=== PATIENT | male | born 1955 | race Caucasian/White ===

== ENCOUNTER 2016-04-27 22:12 | Emergency (ER) | payer OTHER ==
--- NOTE | 2016-04-27 23:37 | ED ORDER SUMMARY ---
..... Patient: YENNI GALEANO OrderSheet [facility] VisitID: [id number] [place] [address] 60y, M Registration Date/Time: 04/27/2016 ORDER SHEET Weight: 94.3 kg (stated) Allergies: No Known Drug Allergy GENERAL ORDERS: MEDICATION ORDERS: Fluorescein Eye Strips 1 strips (NOW) (22:54 04/27/2016 Elzbieta ROSA) (Ack 22:56 Pamella) (23:59 John R.N.) Proparacaine Eye Drops (Solution 0.5 %) 2 drops (affected eye) (22:54 04/27/2016 Elzbieta ROSA) (Ack 22:56 Pamella) (23:59 John R.N.) IV FLUIDS: ORDER SHEET NOTES: [Electronically signed by Contreras Anaya R.N. (23:59 04/27/2016)] [Electronically signed by Gianfranco William MD (22:30 04/29/2016)] [Electronically locked/signed by Contreras Anaya R.N. (23:59 04/27/2016)]
--- NOTE | 2016-04-27 23:37 | ED CLINICAL REPORT ---
Clinical Report - Physicians/Mid Levels [facility] [address] [place] [address] 04/27/2016 22:25 Patient: YENNI GALEANO Time Seen: 22:44 Apr 27 2016. Arrived- By private vehicle. Historian- patient. CPT: ER phys charges level 3 plus (#[id number]). Cornea FB removal w/o slit boyce (#[id number]). HISTORY OF PRESENT ILLNESS Chief Complaint: EYE PAIN and FOREIGN BODY. 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 The patient sustained injury. He has metallic foreign material in the right eye. Eye pain and discomfort. No eye discharge or eye matting. REVIEW OF SYSTEMS No fever, sore throat or cough. All systems otherwise negative, except as recorded above. PAST HISTORY See nurses notes. No history of prior eye injury. He does not wear contact lenses. Tetanus immunization status is up-to-date. Medications: Glipizide Oral. Allergies: No Known Drug Allergy. SOCIAL HISTORY Light tobacco smoker (cigarette)- less than 1/2 a pack per day. No alcohol use or drug use. PHYSICAL EXAM Vital Signs: 04/27/2016 22:34 BP: 159/82. HR: 84. RR: 20. O2 saturation: 96%. Temp: 98.8 F. Pain level now: 7/10. Appearance: Alert. HEENT: Nose normal. Pharynx normal. Head appears normal to external inspection. Rt Eye: A single metallic corneal foreign body is present centrally and laterally. No corneal abrasion or fluorescein dye uptake. Eyes: Visual acuity normal bilaterally. Right eyelid everted for examination. Right cornea examined with fluorescein stain. Eyelids appear normal to inspection. Conjunctivae and sclerae appear normal to inspection. Pupils equal, round and reactive to light. Accommodation normal. Funduscopic exam normal. EOMs intact. Periorbital areas appear normal to inspection. Anterior chambers clear. Anterior chambers of normal depth. Lt Eye: Left eye exam normal. Skin: No rash. Neuro: Oriented X 3. PROGRESS AND PROCEDURES Removal of Eye Foreign Body: After topical anesthesia with Proparacaine, a single foreign body was successfully removed from the right cornea using magnification lenses, a moistened sterile cotton swab and a sterile syringe with needle and irrigation, fluorescein and a Wood's lamp. There were no complications encountered. Aftercare included antibiotic ointment and an eye patch on the right eye. The patient was cooperative. A single rust ring removed completely. (sary brush used to remove rust ring.). Patient/family counseled. Disposition: Discharged. Condition: stable. CLINICAL IMPRESSION Removed corneal foreign body right eye with rust ring. INSTRUCTIONS Do not work for two days. (Eye patch as needed.). Warnings: Further evaluation is necessary. GENERAL WARNINGS: Return or contact your physician immediately if your condition worsens or changes unexpectedly, if not improving as expected, or if other problems arise. Your Current Medications: CONTINUE TAKING THE FOLLOWING MEDICATIONS: Glipizide Oral. Prescription Medications: Hydrocodone/APAP 5mg/325mg: take 1 to 2 orally every 6 hours as needed for pain. Dispense fifteen (15). No refills. Garamycin ophthalmic solution 0.3% : Instill 1 drop into affected eye every 4 hours while awake for 1 week. Dispense five (5) mL. No refills. Substitution is permissible. Follow-up: Follow up with your doctor in two days if not better. Understanding of the discharge instructions verbalized by patient and family. (Electronically signed by Gianfranco William MD 04/29/2016 22:30)
--- NOTE | 2016-04-27 23:37 | ED NURSING NOTES ---
Clinical Report - Nurses [facility] [place] [address] 04/27/2016 22:25 Patient: YENNI GALEANO TRIAGE Triage time 22:34 Apr 27 2016. Acuity: LEVEL 3. Chief Complaint: REDNESS, PAIN and FOREIGN BODY TO RIGHT EYE. SEPSIS SCREEN: Sepsis Screen: negative. Negative (no infection suspected/documented). BATOOL COMA SCORE: [place] Coma Scale: 15- eyes open spontaneously (4); best verbal response- oriented x 4 (5); best motor response- obeys commands (6). --22:37 Lucia Rossi 22:34 04/27/16. BP: 159/82. HR: 84. RR: 20. O2 saturation: 96% on room air. Temp: 98.8 F (oral). Pain level now: 10/07. --22:37 Lucia Rossi. Weight: 94.3 kg stated. Height/Length: 69 inches Per Patient. BMI: 30.7. --22:35 Lucia Rossi. Medications Glipizide Oral. --22:36 Lucia Rossi. Allergies No Known Drug Allergy. --22:36 Lucia Rossi. History Arrived by private vehicle. Historian: patient. Accompanied by family. Onset. (). He may have sustained an injury. 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 ( Patient states he was grinding metal at work on when he felt that something entered his right eye. He states it has become increasingly irritated and painful.). PAST MEDICAL HX: Immunizations: up-to-date. SOCIAL HX: Light tobacco smoker (cigarette)- less than 1/2 a pack per day. No alcohol use or drug use. No infectious disease exposure. ABUSE ASSESSMENT: No report of abuse. FALL RISK ASSESSMENT: Fall risk assessment completed. No fall risk identified. NUTRITIONAL RISK ASSESSMENT: The nutritional risk assessment revealed no deficiencies. FUNCTIONAL ASSESSMENT: Functional assessment: no impairments noted. LEARNING NEEDS ASSESSMENT: The learning needs assessment revealed no barriers. SKIN INTEGRITY ASSESSMENT: Skin integrity risk assessment completed. No skin integrity risk identified. --22:37 Enid Lucia. PROBLEMS: Diabetes Mellitus. --22:37 Enid Lucia. ADDITIONAL SURGERIES: Back Surgery. --22:37 Enid Lucia. Interventions ID band on patient. To treatment room. --22:37 Enid Lucia. PHYSICAL ASSESSMENT GENERAL / NEURO / PSYCH: Alert. Appears in no acute distress. HEENT: No facial asymmetry noted. Conjunctival findings present: redness of the right conjunctiva. RESPIRATORY: Respirations not labored. SKIN: Skin is warm and dry. --22:37 Lucia Rossi HEENT: Visual acuity with corrective lenses: left eye 20/25; right eye 20/25; both eyes 20/25. --22:40 Enid Lucia. NURSING PROGRESS NOTES Reassurance given to the patient. Two patient identifiers checked. Call light placed in reach. Side rails up x 1. Bed placed in lowest position. Brakes of bed on. Patient ready for evaluation- chart flagged. --22:37 EnidBeLucia 23:59 04/27/2016 Proparacaine Eye Drops Opthalmic solution 1 drop given. Given in the right eye. Allergies verified and confirmed 5 rights. (Administered by Dr. William). --23:59 Contreras Anaya R.N. 23:59 04/27/2016 FLUORESCEIN Opth soln Opthalmic solution 1 Strip given. Given in the right eye. Allergies verified and confirmed 5 rights. (Administered by Dr. William). --23:59 Contreras Anaya, R.N. DISPOSITION / DISCHARGE Condition at departure: stable. The goals identified in the patient's plan of care were met. No learning barriers present. Discharge instructions provided and reviewed with the patient. Reviewed medication(s) side effects, precautions, dosing and course information. Prescription(s) given to the patient (Yenni verbalizes importance of finishing all prescribed antibiotics. He verbalizes importance of not driving and/or operating heavy machinery while under influence of narcotics. He verbalizes safe, proper use of all prescribed pain meds for optimal pain management at home.). Patient verbalized understanding. Written instructions provided in Tongan. ( Yenni verbalizes understanding of all d/c instructions including need to f/u with PCP. He has no questions and voices no concerns at this time.). BATOOL COMA SCORE: [place] Coma Scale: 15- eyes open spontaneously (4); best verbal response- oriented x 4 (5); best motor response- obeys commands (6). --23:50 Contreras Anaya R.N. 23:48 04/27/16. BP: 140/68 (regular adult cuff) taken on the left arm, via an automated monitor, while sitting. HR: 67 (normal rate). RR: 14 (regular, unlabored and normal). O2 saturation: 94% on room air. Temp: 98.4 F (oral). Pain level now: 06/07. --23:50 Contreras Anaya R.N. Departure time: 23:58. Work note given (2 days off). The patient was discharged by the physician. He was discharged home and accompanied by family. He left the Emergency Department ambulatory and via private vehicle. Family member driving. --23:58 Contreras Anaya R.N. Locked/Released at 04/27/2016 23:59 by Contreras Anaya R.N.
--- NOTE | 2016-04-27 23:37 | ED ORDER SUMMARY ---
..... Patient: YENNI GALEANO OrderSheet [facility] VisitID: [id number] [place] [address] 60y, M Registration Date/Time: 04/27/2016 ORDER SHEET Weight: 94.3 kg (stated) Allergies: No Known Drug Allergy GENERAL ORDERS: MEDICATION ORDERS: Fluorescein Eye Strips 1 strips (NOW) (22:54 04/27/2016 Elzbieta ROSA) (Ack 22:56 Pamella) (23:59 John R.N.) Proparacaine Eye Drops (Solution 0.5 %) 2 drops (affected eye) (22:54 04/27/2016 Elzbieta ROSA) (Ack 22:56 Pamella) (23:59 John R.N.) IV FLUIDS: ORDER SHEET NOTES: [Electronically signed by Contreras Anaya R.N. (23:59 04/27/2016)] [Electronically signed by Gianfranco William MD (22:30 04/29/2016)] [Electronically locked/signed by Contreras Anaya R.N. (23:59 04/27/2016)]
--- NOTE | 2016-04-27 23:37 | ED CLINICAL REPORT ---
Clinical Report - Physicians/Mid Levels [facility] [address] [place] [address] 04/27/2016 22:25 Patient: YENNI GALEANO Time Seen: 22:44 Apr 27 2016. Arrived- By private vehicle. Historian- patient. CPT: ER phys charges level 3 plus (#[id number]). Cornea FB removal w/o slit boyce (#[id number]). HISTORY OF PRESENT ILLNESS Chief Complaint: EYE PAIN and FOREIGN BODY. 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 The patient sustained injury. He has metallic foreign material in the right eye. Eye pain and discomfort. No eye discharge or eye matting. REVIEW OF SYSTEMS No fever, sore throat or cough. All systems otherwise negative, except as recorded above. PAST HISTORY See nurses notes. No history of prior eye injury. He does not wear contact lenses. Tetanus immunization status is up-to-date. Medications: Glipizide Oral. Allergies: No Known Drug Allergy. SOCIAL HISTORY Light tobacco smoker (cigarette)- less than 1/2 a pack per day. No alcohol use or drug use. PHYSICAL EXAM Vital Signs: 04/27/2016 22:34 BP: 159/82. HR: 84. RR: 20. O2 saturation: 96%. Temp: 98.8 F. Pain level now: 7/10. Appearance: Alert. HEENT: Nose normal. Pharynx normal. Head appears normal to external inspection. Rt Eye: A single metallic corneal foreign body is present centrally and laterally. No corneal abrasion or fluorescein dye uptake. Eyes: Visual acuity normal bilaterally. Right eyelid everted for examination. Right cornea examined with fluorescein stain. Eyelids appear normal to inspection. Conjunctivae and sclerae appear normal to inspection. Pupils equal, round and reactive to light. Accommodation normal. Funduscopic exam normal. EOMs intact. Periorbital areas appear normal to inspection. Anterior chambers clear. Anterior chambers of normal depth. Lt Eye: Left eye exam normal. Skin: No rash. Neuro: Oriented X 3. PROGRESS AND PROCEDURES Removal of Eye Foreign Body: After topical anesthesia with Proparacaine, a single foreign body was successfully removed from the right cornea using magnification lenses, a moistened sterile cotton swab and a sterile syringe with needle and irrigation, fluorescein and a Wood's lamp. There were no complications encountered. Aftercare included antibiotic ointment and an eye patch on the right eye. The patient was cooperative. A single rust ring removed completely. (sary brush used to remove rust ring.). Patient/family counseled. Disposition: Discharged. Condition: stable. CLINICAL IMPRESSION Removed corneal foreign body right eye with rust ring. INSTRUCTIONS Do not work for two days. (Eye patch as needed.). Warnings: Further evaluation is necessary. GENERAL WARNINGS: Return or contact your physician immediately if your condition worsens or changes unexpectedly, if not improving as expected, or if other problems arise. Your Current Medications: CONTINUE TAKING THE FOLLOWING MEDICATIONS: Glipizide Oral. Prescription Medications: Hydrocodone/APAP 5mg/325mg: take 1 to 2 orally every 6 hours as needed for pain. Dispense fifteen (15). No refills. Garamycin ophthalmic solution 0.3% : Instill 1 drop into affected eye every 4 hours while awake for 1 week. Dispense five (5) mL. No refills. Substitution is permissible. Follow-up: Follow up with your doctor in two days if not better. Understanding of the discharge instructions verbalized by patient and family. (Electronically signed by Gianfranco William MD 04/29/2016 22:30)
--- NOTE | 2016-04-29 22:31 | ED DISCHARGE INSTRUCTIONS ---
Patient: YENNI GALEANO General Instructions [facility] VisitID: [id number] [place] [address] 60y, M Registration Date/Time: 04/27/2016 Removed corneal foreign body right eye with rust ring. INSTRUCTIONS Do not work for two days. (Eye patch as needed.). Warnings: Further evaluation is necessary. GENERAL WARNINGS: Return or contact your physician immediately if your condition worsens or changes unexpectedly, if not improving as expected, or if other problems arise. Your Current Medications: CONTINUE TAKING THE FOLLOWING MEDICATIONS: Glipizide Oral. Prescription Medications: Hydrocodone/APAP 5mg/325mg: take 1 to 2 orally every 6 hours as needed for pain. Dispense fifteen (15). No refills. Garamycin ophthalmic solution 0.3% : Instill 1 drop into affected eye every 4 hours while awake for 1 week. Dispense five (5) mL. No refills. Substitution is permissible. Follow-up: Follow up with your doctor in two days if not better. Understanding of the discharge instructions verbalized by patient and family. ADDITIONAL INFORMATION Particle Removed From Eyewith Rust Ring [Corneal F.B.] The metal particle that got into your eye stuck to the cornea (the clear part in front of your eye). This sensitive area is very painful when injured. However, it heals rapidly and the pain disappears within 24-48 hours. Although the metal particle may have been removed, the salty tears have caused the metal to rust and form a stain in the cornea. Many times it is not possible to completely remove a rust ring on the first visit. Therefore, you may have to return to this facility or be referred to an water conservation specialist for further treatment. Home Care: A cold pack (ice in a plastic bag, wrapped in a towel) may be applied over the eye for 20 minutes at a time to reduce pain. You may use acetaminophen (Tylenol) or ibuprofen (Motrin, Advil) to control pain, unless another medicine was prescribed. [NOTE: If you have chronic liver or kidney disease or ever had a stomach ulcer or GI bleeding, talk with your doctor before using these medicines.] If an EYE PATCH was applied: You may place the ice pack directly over the eye-patch. If you were given a return appointment for patch removal and re-exam, do not miss it. An eye patch should not be left in place for more than 48 hours, unless advised to do so by your doctor. DO NOT DRIVE a motor vehicle or operate machinery with the patch in place since you will have difficulty in judging distances with only one eye. If eye drops or ointment was prescribed, take as directed. Follow Up: If no patch was used but the pain continues for more than 48 hours, you should have another exam. Return to this facility or contact the referral doctor to arrange this. If your eye was patched and if you were asked to remove the patch yourself, see your doctor or return to this facility if your pain is still present after removal. If you were given a return appointment for patch removal and re-exam, do not miss this. It could be harmful if the patch remains in place longer than advised. Get Prompt Medical Attention if any of the following occur: Increasing eye pain or pain that does not improve after 24 hours Discharge from the eye Redness of the eye or swelling of the eyelids Worsening vision You have been given the following additional information: Corneal Foreign Body, Removed, W/ Rust Ring Do not work for two days. (Electronically signed by Gianfranco William MD 04/29/2016 22:30)
--- NOTE | 2016-04-29 22:31 | ED MED RECONCILIATION SUMMARY ---
Patient: YENNI GALEANO Medication Reconciliation Report [facility] VisitID: [id number] [address] [place] [address] 60y, M Registration Date/Time: 04/27/2016 Weight: 94.3 kg Height/Length: 69 in. BMI: 30.7 ALLERGIES: No Known Drug Allergy The patient's Home Medications are listed below: CONTINUE TAKING THE FOLLOWING MEDICATIONS: Glipizide Oral The source(s) of the original Home Medication information: Not obtained. The following Medications were given to the patient in the Emergency Department: Proparacaine [Eye Drops] Eye Drops 1 drop, administered: 04/27/2016 11:59:00 PM FLUORESCEIN [EYE STRIPS] Opth soln 1 Strip, administered: 04/27/2016 11:59:00 PM The following Medications were prescribed to the patient: Hydrocodone/APAP 5mg/325mg: take 1 to 2 orally every 6 hours as needed for pain. Dispense fifteen (15). No refills. -- Gianfranco William MD Garamycin ophthalmic solution 0.3% : Instill 1 drop into affected eye every 4 hours while awake for 1 week. Dispense five (5) mL. No refills. Substitution is permissible. -- Gianfranco William MD
--- NOTE | 2016-04-29 22:31 | ED MAR SUMMARY ---
..... Medication Administration Record [facility] [address] [place] [address] Patient: YENNI GALEANO Visit ID: [id number] 60y, M Weight: 94.3 kg Height/Length: 69 in BMI: 30.7 ALLERGIES: No Known Drug Allergy Given 23:59 04/27/2016 Contreras Anaya, R.N. Medication Administered: PROPARACAINE [EYE DROPS], Dose: 1 drop Opthalmic solution Eye Drops. Medication Ordered: Proparacaine Eye Drops (Solution 0.5 %) 2 drops (affected eye). Given 23:59 04/27/2016 Contreras Anaya, R.N. Medication Administered: FLUORESCEIN [EYE STRIPS], Dose: 1 Strip Opthalmic solution Opth soln. Medication Ordered: Fluorescein Eye Strips 1 strips (NOW).
--- NOTE | 2016-04-29 22:31 | ED MED RECONCILIATION SUMMARY ---
Patient: YENNI GALEANO Medication Reconciliation Report [facility] VisitID: [id number] [address] [place] [address] 60y, M Registration Date/Time: 04/27/2016 Weight: 94.3 kg Height/Length: 69 in. BMI: 30.7 ALLERGIES: No Known Drug Allergy The patient's Home Medications are listed below: CONTINUE TAKING THE FOLLOWING MEDICATIONS: Glipizide Oral The source(s) of the original Home Medication information: Not obtained. The following Medications were given to the patient in the Emergency Department: Proparacaine [Eye Drops] Eye Drops 1 drop, administered: 04/27/2016 11:59:00 PM FLUORESCEIN [EYE STRIPS] Opth soln 1 Strip, administered: 04/27/2016 11:59:00 PM The following Medications were prescribed to the patient: Hydrocodone/APAP 5mg/325mg: take 1 to 2 orally every 6 hours as needed for pain. Dispense fifteen (15). No refills. -- Gianfranco William MD Garamycin ophthalmic solution 0.3% : Instill 1 drop into affected eye every 4 hours while awake for 1 week. Dispense five (5) mL. No refills. Substitution is permissible. -- Gianfranco William MD
--- NOTE | 2016-04-29 22:31 | ED MAR SUMMARY ---
..... Medication Administration Record [facility] [address] [place] [address] Patient: YENNI GALEANO Visit ID: [id number] 60y, M Weight: 94.3 kg Height/Length: 69 in BMI: 30.7 ALLERGIES: No Known Drug Allergy Given 23:59 04/27/2016 Contreras Anaya, R.N. Medication Administered: PROPARACAINE [EYE DROPS], Dose: 1 drop Opthalmic solution Eye Drops. Medication Ordered: Proparacaine Eye Drops (Solution 0.5 %) 2 drops (affected eye). Given 23:59 04/27/2016 Contreras Anaya, R.N. Medication Administered: FLUORESCEIN [EYE STRIPS], Dose: 1 Strip Opthalmic solution Opth soln. Medication Ordered: Fluorescein Eye Strips 1 strips (NOW).
== END 2016-04-27 23:50 | disposition home or self-care (01) ==
LOC: ED SRH 22:12
DX: T15.01XA Foreign body in cornea, right eye, initial encounter (principal); W20.8XXA Other cause of strike by thrown, projected or falling object, initial encounter; Y93.89 Activity, other specified; Y99.0 Civilian activity done for income or pay; Y92.69 Other specified industrial and construction area as the place of occurrence of the external cause; F17.210 Nicotine dependence, cigarettes, uncomplicated